=== PATIENT | male | born 1940 | race Caucasian/White ===

== ENCOUNTER 2019-11-12 16:32 | Emergency (ER) | payer MEDICARE ==
[~2019-11-12] VITALS: Ht 185 cm; Wt 106.1 kg
[~2019-11-12 16:32] MED LIST: HYDR1TAB8 OP; LEVO500T69 PO; ONDAN4ODT PO; TMSL.4C PO
--- NOTE | 2019-11-12 17:03 | NUR ---
PT HAS LARGE AREA OF SHINGLES BLISTERS NOTED ON L SIDE STILL BREAKING OUT STARTED THIS AFTERNOON
[2019-11-12] MEDS ORDERED: HYDR-4226 PO (17:09)
[2019-11-12] MEDS ORDERED: PRD20T PO (17:09)
[2019-11-12] MEDS ORDERED: VALA10007 PO (17:09)
--- NOTE | 2019-11-12 17:09 | ED GI ---
General Chief Complaint: Abdominal/GI Problems Stated Complaint: CONSTIPATION,BLISTER ON BACK Nursing Triage Note: was seen last tuesday for bilateral groin pain, was told it was constipation, pt only has R kidney and is worried about infection, pt also presents with skin issue to R side of lower back Sepsis Screen: No Definite Risk Source of Information: Patient Exam Limitations: No Limitations History of Present Illness Date Seen by Provider: Nov 12, 2019 Time Seen by Provider: 17:03 Initial Comments To ER by private vehicle with reports of pelvic pain for the past few days. He was seen by primary care and diagnosed with constipation, over the course of the past day he developed a blistering red very painful rash to the left flank, since being seen by primary care his lower pelvic pain has also localized to the left side. He does report polyuria but states that he's been drinking a lot of water as well. He's had several bowel movements and does not believe himself to be constipated. Timing/Duration: 3-4 Days Severity/Quality: Moderate Location: LLQ Radiation: No Radiation Activities at Onset: None Allergies and Home Medications Allergies Coded Allergies: No Known Drug Allergies (Unverified , 02/26/12) Home Medications Hydrocodone Bit/Ibuprofen 1 Each Tablet, 1-2 EACH OP Q 4 - 6 HRS PRN FOR PAIN Prescribed by: ELÍAS COLLAZO on 02/27/1250 Levofloxacin 500 Mg Tab, 1 EACH PO DAILY FOR INFECTION Prescribed by: ELÍAS COLLAZO on 02/27/1250 Ondansetron Hcl 4 Mg Tab, 4 MG PO Q4H FOR NAUSEA AND VOMITING Prescribed by: ELÍAS COLLAZO on 02/27/1250 Tamsulosin Hcl 0.4 Mg Cap.sr.24h, 1 CAP PO DAILY Prescribed by: ELÍAS COLLAZO on 02/27/1249 Patient Home Medication List Home Medication List Reviewed: Yes Review of Systems Review of Systems Constitutional: see HPI EENTM: No Symptoms Reported Respiratory: No Symptoms Reported Cardiovascular: No Symptoms Reported Gastrointestinal: See HPI, Abdominal Pain Genitourinary: No Symptoms Reported Musculoskeletal: no symptoms reported Skin: see HPI Psychiatric/Neurological: No Symptoms Reported Endocrine: No Symptoms Reported Hematologic/Lymphatic: No Symptoms Reported Past Bmqtrva-Awzovh-Fllecl Hx Patient Social History Alcohol Use: Denies Use Recreational Drug Use: No 2nd Hand Smoke Exposure: No Recent Foreign Travel: No Contact w/Someone Who Travel: No Recent Infectious Disease Expo: No Recent Hopitalizations: No Immunizations Up To Date Date of Pneumonia Vaccine: Jun 12, 2008 Date of Influenza Vaccine: May 13, 2011 Seasonal Allergies Seasonal Allergies: No Past Medical History Surgeries: Yes (back, gall bladder, prostate, eye, prostatectomy) Respiratory: No Cardiac: No Neurological: No Genitourinary: Yes Kidney Stones Gastrointestinal: No Musculoskeletal: Yes Degenerate Disk Disease Endocrine: No HEENT: No Cancer: No Psychosocial: No Integumentary: No Physical Exam Vital Signs Vital Signs - First Documented 11/12/19 16:38 Temp 36.8 Pulse 83 Resp 18 B/P (MAP) 138/78 (98) Capillary Refill : Less Than 3 Seconds Height/Weight/BMI Height: '" Weight: lbs. oz. kg; 31.00 BMI Method: General Appearance: WD/WN, no apparent distress HEENT: PERRL/EOMI, normal ENT inspection Neck: non-tender, full range of motion Respiratory: no respiratory distress, no accessory muscle use Cardiovascular: regular rate, rhythm, no murmur Gastrointestinal: normal bowel sounds, non tender, soft Extremities: normal range of motion Back: other (there is a rash beginning in the lumbar spine at the midline, extending laterally around to the left lower abdomen, this is dark red well demarcated blistering rash consistent with that of herpes zoster. It does not cross the midline to the right side of his back.) Neurologic/Psychiatric: alert, normal mood/affect, oriented x 3 Skin: normal color, warm/dry Progress/Results/Core Measures Results/Orders Vital Signs/I&O 11/12/19 16:38 Temp 36.8 Pulse 83 Resp 18 B/P (MAP) 138/78 (98) Blood Pressure Mean: 98 Departure Impression Primary Impression: Herpes zoster Qualified Codes: B02.9 - Zoster without complications Disposition: 01 HOME, SELF-CARE Condition: Stable Departure-Patient Inst. Decision time for Depature: 17:06 Referrals: NO,LOCAL PHYSICIAN (PCP/Family) Primary Care Physician Patient Instructions: Shingles Add. Discharge Instructions: 1. Medication as directed. Consider herself contagious until these blisters rupture and then crust over. The pain medication is known to be constipating him if you don't take a stool softener already, you should do so, you can purchase Colace [id number] at [facility] in [facility]. All discharge instructions reviewed with patient and/or family. Voiced understanding. Scripts Valacyclovir HCl (Valacyclovir) 1,000 Mg Tablet 1000 MG PO TID, #30 TAB Prov: ZOILA LANTIGUA APRN 11/12/19 Prednisone (Prednisone) 20 Mg Tab 20 MG PO DAILY, #22 TAB Take 3 tabs(60mg)daily,decrease by 1/2 tab(10mg)every other day. Prov: ZOILA LANTIGUA APRN 11/12/19 ZOILA LANTIGUA APRN Nov 12, 2019 17:09
[2019-11-12 17:26] LABS: BILIRUBIN,URINE NEGATIVE (NEGATIVE); CLARITY,URINE CLEAR; COLOR,URINE YELLOW; GLUCOSE, URINE (UA) NEGATIVE (NEGATIVE); KETONES,URINE NEGATIVE (NEGATIVE); LEUKOCYTE ESTERASE ,URINE NEGATIVE (NEGATIVE); NITRITE,URINE NEGATIVE (NEGATIVE); PROTEIN,URINE NEGATIVE (NEGATIVE)
[2019-11-12 17:37] LABS: BACTERIA,URINE TRACE /HPF; SQUAMOUS EPITHELIAL CELL,UR RARE /HPF; WBC,URINE RARE /HPF
[2019-11-12 17:42] VITALS: BP 138/78
== END 2019-11-12 17:48 | disposition home or self-care (01) ==
LOC: EDUNIT# 16:32 → ER 16:34
DX: B02.9 Zoster without complications (principal); Z87.442 Personal history of urinary calculi
CPT/HCPCS: 81000; 99282

== ENCOUNTER → 2020-01-24 | Outpatient (CLI) | payer MEDICARE ==
[~2020-01-24] MED LIST changes: +CATHETER FLUSH 10 ML SYR IV PRN; +HOLD METFORMIN - RECEIVED CONTRAST 20 ML VIAL IV SCH; +HYDR-4226 PO; +IOHEXOL 350 MG/ML 100 ML (OMNIPAQUE 350) VIAL IV ONE; +NS 100 ML (IVPB) BAG IV ONE; +PRD20T PO; +VALA10007 PO
[2020-01-24 14:19] LABS: BASOPHILS % (AUTO) 0 % (0-10); EOSINOPHILS # (AUTO) 0.1 10^3/uL (0.0-0.3); EOSINOPHILS % (AUTO) 2 % (0-10); HEMATOCRIT 48 % (40-54); HEMOGLOBIN 16.2 G/DL (13.3-17.7); LYMPHOCYTES # (AUTO) 1.2 X 10^3 (1.0-4.0); LYMPHOCYTES % (AUTO) 20 % (12-44); MEAN CORPUSCULAR HEMOGLOBIN 32 PG (25-34); MEAN CORPUSCULAR HGB CONC 34 G/DL (32-36); MEAN CORPUSCULAR VOLUME 95 FL (80-99); MEAN PLATELET VOLUME 9.4 FL (7.4-10.4); MONOCYTES # (AUTO) 0.8 X 10^3 (0.0-1.0); MONOCYTES % (AUTO) 14 % (0-12); NEUTROPHILS # (AUTO) 3.8 X 10^3 (1.8-7.8); NEUTROPHILS % (AUTO) 65 % (42-75); PLATELET COUNT 273 10^3/uL (130-400); RED CELL DISTRIBUTION WIDTH 14.2 % (10.0-14.5); WHITE BLOOD COUNT 5.9 10^3/uL (4.3-11.0)
[2020-01-24 14:46] LABS: ALBUMIN 4.4 GM/DL (3.2-4.5); POTASSIUM 4.3 MMOL/L (3.6-5.0)
[2020-01-24 14:47] LABS: CALCIUM 10.1 MG/DL (8.5-10.1)
[2020-01-24 14:48] LABS: TOTAL PROTEIN 7.6 GM/DL (6.4-8.2)
[2020-01-24 14:50] LABS: BILIRUBIN,TOTAL 0.8 MG/DL (0.1-1.0)
[2020-01-24 14:52] LABS: CREATININE SERUM 1.43 MG/DL (0.60-1.30)
--- NOTE | 2020-01-24 15:49 | Diagnostic Imaging Report ---
PROCEDURE: CT abdomen and pelvis without contrast. TECHNIQUE: Multiple contiguous axial images were obtained through the abdomen and pelvis without the use of intravenous contrast. Auto Exposure Controls were utilized during the CT exam to meet ALARA standards for radiation dose reduction. INDICATION: Midback pain. COMPARISON: The exam compared with study of 05/29/2012. FINDINGS: While having progressed in the interim, there is chronic-appearing severe left hydroureteronephrosis. There is likely little to no functioning of the left kidney which is largely occupied by distended fluid spaces with very thin peripheral cortex. No perinephric edema and no periureteric edema. The left ureter is dilated distally to the level of the bladder at its transition and an offending lesion cannot be identified. No radiodense urinary tract stone. The right kidney is unobstructed and nonacute in appearance. It does have a cyst in the upper pole, not well visualized owing to the absence of contrast. It is about 1 cm and not definitively changed from the prior comparison contrast-enhanced exam. Gallbladder is surgically absent. No bile duct dilatation. Liver, spleen, adrenals, and pancreas are unremarkable at this nonenhanced exam. The air-containing appendix is normal. There is no diverticulitis. There is no bowel obstruction. No free air. No abscess, hematoma, or other acute fluid collection. No focal inflammatory process. No free gas. IMPRESSION: Progressive but chronic-appearing severe left hydroureteronephrosis. Suboptimal visualization and characterization of a right upper pole renal cortical cyst, not definitively changed from the comparison. No radiodense stone. No acute-appearing abdominopelvic pathology. Dictated by: Dictated on workstation # [id number]
== END ==
LOC: RAD 14:05
DX: N40.0 Benign prostatic hyperplasia without lower urinary tract symptoms (principal); R53.83 Other fatigue; R10.0 Acute abdomen; N13.30 Unspecified hydronephrosis; N28.1 Cyst of kidney, acquired
CPT/HCPCS: 36415; 74176; 80053; 84153; 84443; 85025